=== PATIENT | female | born 1985 | race Hispanic/Latino ===

== ENCOUNTER 2019-09-28 08:51 | Emergency (ER) | payer OTHER ==
[2019-09-28] MEDS: IBUPROFEN 600 MG TAB PO ONE (10:02)
[2019-09-28] MEDS ORDERED: IBUPROFEN 200 MG TAB ONE (10:16)
--- NOTE | 2019-09-28 13:51 | Diagnostic Imaging Report ---
ELBOW 3 VIEW RT - HOPD - 6 views HISTORY: Pain COMPARISON: None available. FINDINGS: Bones: No acute displaced fracture. Osseous alignment is within normal limits. Joints: The joint spaces are well-maintained. Soft tissues: The soft tissues appear unremarkable. IMPRESSION: No acute radiographic abnormality. Signed by: Randy Giron MD on 09/28/2019 10:06 AM
== END 2019-09-28 10:17 | disposition home or self-care (01) ==
LOC: FSED 08:51
DX: S53.441A Ulnar collateral ligament sprain of right elbow, initial encounter (principal); W01.0XXA Fall on same level from slipping, tripping and stumbling without subsequent striking against object, initial encounter; Y92.008 Other place in unspecified non-institutional (private) residence as the place of occurrence of the external cause
CPT/HCPCS: 99283